=== PATIENT | male | born 2000 | race Caucasian/White ===

== ENCOUNTER 2022-12-31 22:04 | Emergency (ER) | payer MEDICAID ==
[~2022-12-31] VITALS: Ht 175.3 cm; Wt 81.6 kg
[2022-12-31 22:15] VITALS: BP 124/89; PULSE 100; RESP 17; TEMP 97.8; O2SAT 97
--- NOTE | 2022-12-31 22:15 | NUR ---
to bed via wheelchair
--- NOTE | 2022-12-31 23:18 | NUR ---
22 YO M BIB FAMILY C/O ANKLE PAIN AFTER TRIPPING DOWN STAIRS. PT STATES 10/10 PAIN AT ANKLE. ANKLE APPEARS SWOLLEN AND MILD BRUISING NOTED. +ETOH. NKDA NO MEDICAL HX
[2022-12-31] MEDS ORDERED: HYDROcodone/APAP 5/325 MG 1 TAB TAB PO ONE (23:25)
[2022-12-31] MEDS ORDERED: ACET-8905 PO (23:34)
[2022-12-31] MEDS ORDERED: IBUP-2213 PO (23:34)
--- NOTE | 2023-01-01 00:05 | NUR ---
Patient discharged with v/s stable. Written and verbal after care instructions given and explained. Patient verbalized understanding. Ambulatory with steady gait. All questions addressed prior to discharge. Advised to follow up with PMD.
[2023-01-01] MEDS ORDERED: HYDR-5191 PO (03:25)
== END 2023-01-01 00:05 | disposition home or self-care (01) ==
LOC: MED 22:04
DX: S82.832A Other fracture of upper and lower end of left fibula, initial encounter for closed fracture (principal); Z79.899 Other long term (current) drug therapy; X58.XXXA Exposure to other specified factors, initial encounter; Y93.01 Activity, walking, marching and hiking; Y92.89 Other specified places as the place of occurrence of the external cause; Y99.8 Other external cause status
CPT/HCPCS: 29515; 73610; 99283